=== PATIENT | female | born 1935 | race Asian ===

== ENCOUNTER 2019-10-31 05:56 | Emergency (ER) | payer OTHER ==
[~2019-10-31] VITALS: Ht 152.4 cm; Wt 54.4 kg
[2019-10-31 06:13] VITALS: Ht 152.4 cm; Wt 54.4 kg
[2019-10-31 07:16] LABS: BASOPHIL % 0.3 % (0-2); PLATELET COUNT 219 x10^3mcL (130-400); RED CELL DISTRIBUTION WIDTH 13.6 % (11.5-14.5)
[2019-10-31 07:24] LABS: CARBON DIOXIDE 30.2 mmol/L (21-32); CHLORIDE SERUM 100 mmol/L (98-107); CREATININE SERUM 0.7 mg/dL (0.6-1.0); GLUCOSE SERUM 100 mg/dL (74-106); POTASSIUM SERUM 3.5 mmol/L (3.5-5.1); SODIUM SERUM 136 mmol/L (136-145)
[2019-10-31 07:29] LABS: ALKALINE PHOSPHATASE 87 U/L (46-116); ALT/SGPT 30 U/L (14-59); AST/SGOT 24 U/L (15-37); BILIRUBIN TOTAL 0.5 mg/dL (0.20-1.00); TOTAL PROTEIN, SERUM 7.3 g/dL (6.4-8.2)
[2019-10-31 07:30] LABS: ALBUMIN 3.2 g/dL (3.4-5.0)
[2019-10-31 09:40] VITALS: BP 133/59
== END 2019-10-31 09:49 | disposition home or self-care (01) ==
LOC: ED 05:56
PROVIDERS: Emergency Medicine
DX: S00.03XA Contusion of scalp, initial encounter (principal); H43.13 Vitreous hemorrhage, bilateral; S39.93XA Unspecified injury of pelvis, initial encounter; I10 Essential (primary) hypertension; W20.8XXA Other cause of strike by thrown, projected or falling object, initial encounter; Y93.89 Activity, other specified; Y92.89 Other specified places as the place of occurrence of the external cause; Y99.8 Other external cause status
CPT/HCPCS: 83880; Q0092